=== PATIENT | male | born 1945 | race Caucasian/White ===

== ENCOUNTER 2017-04-25 11:50 | Day surgery (SDC) | payer OTHER ==
[2017-04-25] MEDS ORDERED: ceFAZolin 2 GM/DEXTROSE 100 ML IV ONE (12:06)
--- NOTE | 2017-04-25 12:11 | PDHPUP ---
History & Physical Update H&P update statement: This history and physical update is based on an assessment of the patient which was completed after admission or registration (within 24 hours), but prior to the surgery/procedure. H&P update: H&P reviewed & patient examined H&P changes: no changes
[2017-04-25] MEDS ORDERED: LR 1,000 ML IV ONE (12:25)
[2017-04-25] MEDS ORDERED: ceFAZolin 2 GM/SWFI 2 GM/20 ML SYR IVP ONE (12:30)
[2017-04-25] MEDS ORDERED: BACITRACIN 50,000 UNITS/10 ML SYR IRR ONE (12:52)
[2017-04-25] MEDS ORDERED: BUPIVACAINE 0.25% 30 ML SDV ONE ×2 (12:52→12:54)
[2017-04-25] MEDS ORDERED: PROPOFOL/EMULSION 500 MG/50 ML BOTTLE IV ONE ×3 (13:00→14:37)
--- NOTE | 2017-04-25 13:19 | PDANEPAE ---
ANE History of Present Illness Patient presents for R bunion surgery ANE Past Medical History - Cardiovascular History Hx Hypertension: Yes Hx Arrhythmias: Yes Hx Chest Pain: No Hx Coronary Artery / Peripheral Vascular Disease: Yes Hx CHF / Valvular Disease: Yes Hx Palpitations: No Cardiovascular History Comment: link monitor SQ right of sternum - Pulmonary History Hx COPD: No Hx Asthma/Reactive Airway Disease: No Hx Recent Upper Respiratory Infection: No Hx Oxygen in Use at Home: No Hx Sleep Apnea: Yes Sleep Apnea Screening Result - Last Documented: Positive Pulmonary History Comment: NILA - Neurologic History Hx Cerebrovascular Accident: No Hx Seizures: No Hx Dementia: No - Endocrine History Hx Diabetes: No - Renal History Hx Renal Disorders: No - Liver History Hx Hepatic Disorders: No - Neurological & Psychiatric Hx Hx Neurological and Psychiatric Disorders: No - Cancer History Hx Cancer: No - Congenital Disorder History Hx Congenital Disorders: No - GI History Hx Gastrointestinal Disorders: No - Other Health History Other Health History: none - Chronic Pain History Chronic Pain: Yes (left hip) - Surgical History Prior Surgeries: heart valve 06/2016. right hip 2016 ANE Review of Systems Review of Systems: - Exercise capacity Exercise capacity: >=4 METS METS (RN): 5 METS ANE Patient History - Allergies Allergies/Adverse Reactions: apixaban [From Eliquis] Allergy (Severe, Verified 04/11/17 10:47) Other-Enter Comments - Home Medications Home medications: home medication list seen and reviewed Home Medications: Atacand 04/11/17 [Last Taken Unknown] Lasix 04/11/17 [Last Taken Unknown] Metoprolol Succinate 04/11/17 [Last Taken 04/25/17 08:00] Potassium Chloride 04/11/17 [Last Taken 04/24/17] Tikosyn 0.125 MG (*) 04/11/17 [Last Taken Unknown] Warfarin Sodium 04/11/17 [Last Taken 04/15/17] - NPO status NPO Status: no food or drink >8 hours NPO Since - Liquids (Date): 04/25/17 NPO Since - Liquids (Time): 06:30 NPO Since - Solids (Date): 04/24/17 NPO Since - Solids (Time): 23:30 - Anes Hx Anes Hx: no prior problems - Smoking Hx Smoking Status: Never smoked - Family Anes Hx Family Hx Anesthesia Complications: none ANE Labs/Vital Signs - Vital Signs Blood Pressure: 113/68 Heart Rate: 59 Respiratory Rate: 18 O2 Sat (%): 92 Height: 185.42 cm Weight: 97.522 kg ANE Physical Exam - Airway Neck exam: FROM Mallampati Score: Class 1 Mouth exam: normal dental/mouth exam - Pulmonary Pulmonary: no respiratory distress - Cardiovascular Cardiovascular: regular rate and rhythym - ASA Status ASA Status: III ANE Anesthesia Plan Anesthesia Plan: GA with mask (RBA discussed)
[2017-04-25] MEDS ORDERED: LIDO/EPI 2%** Not for Epidural 20 ML MDV ONE (13:30)
[2017-04-25] MEDS ORDERED: ALBUTEROL HFA ANES ONLY 200 PUFFS/8.5 GM MDI IH ONE ×3 (13:43)
[2017-04-25] MEDS ORDERED: ONDANSETRON 4 MG/2 ML VIAL ONE (13:43)
[2017-04-25] MEDS ORDERED: CALCIUM CHLORIDE 1 GM/10 ML INJ ONE (13:57)
[2017-04-25] MEDS ORDERED: THROMBIN (BOVINE) 5,000 UNIT VIAL TP ONE (13:57)
[2017-04-25] MEDS ORDERED: LR 500 ML IV PRN (15:18)
[2017-04-25] MEDS ORDERED: ONDANSETRON 4 MG/2 ML VIAL IVP PRN (15:18)
[2017-04-25] MEDS ORDERED: OXYCODONE/APAP 5/325 TAB PO PRN (15:18)
[2017-04-25] MEDS ORDERED: fentaNYL 100 MCG/2 ML INJ IVP PRN (15:18)
[2017-04-25] MEDS ORDERED: HYDROCODONE/APAP 5/325 TAB PO PRN (15:18)
[2017-04-25] MEDS ORDERED: NALOXONE HCL 0.4 MG/ML INJ IVP PRN ×2 (15:18→15:33)
--- NOTE | 2017-04-25 15:34 | POSTANESTH ---
Post Anesthetic Evaluation Cardiovascular Status: Similar to Pre-Op Cond Respiratory Status: Similar to Pre-op Cond. Level of Consciousness/Mental Status: Alert and Oriented Pain Control: Adequate, Prn Tx Ordered Nausea/Vomiting Control: Adequate, Prn Tx Ordered Complications Possibly Related to Anesthesia: None Noted
--- NOTE | 2017-04-25 15:42 | POSTOPPROG ---
Post Op Note Date of Operation: 04/25/17 Surgeon: Michael Chavez Director Business Development: none Anesthesiologist: olivier Pre-op Diagnosis: hallux limitus right Post-op Diagnosis: same Indication: 1st mtpj pain Procedure: implant arthroplasty Findings: gout Inf/Abcess present in the surg proc area at time of surgery?: No Depth: Deep Incisional (Fascial) EBL: Minimal Total fluids administered: 20cc 9/1 ratio .25% marcaine plain and with epi Complications: none Drains: Other (none)
[2017-04-25 16:57] VITALS: BP 114/79; RESP 18; TEMP 97.6; O2SAT 98
[2017-04-25 17:00] VITALS: PULSE 58
--- NOTE | 2017-04-26 04:24 | GOP ---
[f rep st] OPERATIVE REPORT DATE OF OPERATION: 04/25/2017 SURGEON: Michael Chavez DPM [facility] TECHNICIAN: None. ANESTHESIA: Local with MAC. ANESTHESIOLOGIST: Saurabh Hernadez MD. PREOPERATIVE DIAGNOSIS: Hallux limitus, right. POSTOPERATIVE DIAGNOSIS: 1. Hallux limitus, right. 2. 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 PROCEDURE PERFORMED: 1. Right 1st metatarsal phalangeal joint implant arthroplasty. 2. Excision gouty tophus, right 1st metatarsophalangeal joint. 3. Platelet-rich plasma injection. FINDINGS: SPECIMENS: Soft tissue specimen and crystal sent in for pathological evaluation. ESTIMATED BLOOD LOSS: Less than 20 cc. DESCRIPTION OF PROCEDURE: The patient presented to [facility], was cleared for the int ended procedure. Patient was taken to the operating room and placed on the table in supine position. IV sedation was started per the anesthesia department. Foot was anesthetized and infiltrated in ne rve block fashion. Foot was prepped, scrubbed, and draped in usual sterile fashion following exsangu ination by elevation of Esmarch bandage, pneumatic ankle tourniquet was inflated to 250 mmHg. At thi s time, attention was directed to the dorsal aspect of the right 1st metatarsophalangeal joint where the obvious soft tissue swelling was identified. A linear incision was made medial to the extensor h allucis longus tendon. The incision was carried deep utilizing sharp and blunt dissection, making laughlin re that all neurovascular structures were identified and retracted at this time. All superficial ble eders were cauterized. The incision was carried down deep to the level of the joint capsule. At thi s time there was noted to be some continued bleeding from the tissue. It was initially thought that this was likely due to the use of anticoagulants by the patient. It was decided that the tourniquet would be inflated to 270 mmHg to help control the bleeding. At the same time, 5 cc of 2% xylocaine w ith epi were infiltrated over the site. This helped control the bleeding better at this point. Upon completion of this, a linear capsulotomy was performed. Capsular tissues were dissected free medial ly and laterally to allow for adequate exposure to the head of the metatarsal base of the proximal ph alanx. Immediately there were loose joint mice appreciable that were dissected free and removed. Th ere was also noted to be a gritty crystalline white appearing substance inside the joint and inside s ome of the capsular tissues. This was most consistent with the presence of gouty tophus. It was dec ided that this needed to be excised, which was performed as good as possible, and some of the tissue being sent in for pathological evaluation to confirm diagnosis. Upon completion of this, the area wa s flushed with copious amounts of sterile saline. At this point, the cartilaginous surfaces on both sides of the joint were noted to be completely denuded and his range of motion was less than 10 degre es at this time. It was decided that implant arthroplasty would be necessary. Attention was directe d to the head of the metatarsal where the guidewire was placed from distal to proximal. This was con firmed having good alignment with the C-arm fluoroscopy. Upon completion of this, the drill was plac ed over the area and the site was drilled appropriately. The area was tapped before the screw was pl aced into the metatarsal neck region. The area was again flushed with copious amounts of sterile anita ine at this time. Upon completion of this, the area was reamed appropriately for the 2.5 x 4.5 metat arsal cap. The trial cap was placed over the site and a McGlamry elevator was then utilized to free up the sesamoidal apparatus. Upon completion of this, dramatic improvement in the range of motion wa s identified immediately. There were considerable osteophyte formations surrounding the entire metat arsal capsule region which were then resected with a sagittal saw and smoothed down with a power bur. The area was again flushed with copious amounts of sterile saline. The metatarsal cap was shown on C-arm fluoroscopy to sit perfectly on the metatarsal. At this point, the metatarsal cap was removed and attention was directed to the base of the proximal phalanx where again substantial osteophyte fo rmation was noted. These were removed with a rongeur at this time before another guidewire was place d from proximal to distal in the proximal phalanx. Again, C-arm fluoroscopy confirmed excellent alig nment before the area was drilled and tapped appropriately. The area was again flushed with copious amounts of sterile saline before the base plate was then screwed into the proximal phalanx appropriat lisa. The area was again flushed with copious amounts of sterile saline to remove all bone fragments before the trial metatarsal head and phalangeal component were put into place. At this point, approx imately 80 degrees of range of motion and dorsiflexion were appreciable. This was decided to be an e xcellent result and the area had the temporary spacers removed. The area was flushed a final time wi th sterile saline and antibiotic rinse before the permanent implant was placed with the Zhong taper f it into the metatarsal neck and then packed it appropriately and the phalangeal component snapped int o the base plate in appropriate alignment. Again, range of motion was without crepitus and at approx imately 80-90 degrees. The area was flushed a final time with copious amounts of sterile saline befo re the capsular tissues were closed with 2-0 and 3-0 Vicryl followed by subcutaneous closure with 5-0 Vicryl and skin closure with 5-0 nylon. The area was then infiltrated with 4 cc of platelet-rich pl asma into the tissue surrounding the joint. The area was then dressed with Betadine-soaked Adaptics, 4x4s, Alyson, and Coban. The patient was taken to the recovery room, vital signs stable, vascular laughlin pply intact digits 1 through 5 bilaterally after the pneumatic ankle tourniquet had been released for a total tourniquet time of 116 minutes. HEMOSTASIS: PAT at 270 mmHg by 116 minutes. MATERIALS: Arthrosurface 2.5 x 4.5 implant. INJECTABLES: 20 cc, 9:1 ratio, 0.25% Marcaine plain, 0.25% Marcaine with epi preoperatively. 5 cc 2 % Xylocaine with epi intraoperatively. COMPLICATIONS: None. /[id number]/MODL
== END 2017-04-25 17:15 | disposition home or self-care (01) ==
LOC: FSGY 11:50
PROVIDERS: ATTEND Podiatrist Primary Podiatric Medicine
DX: M20.21 Hallux rigidus, right foot (principal); M1A.0711 Idiopathic chronic gout, right ankle and foot, with tophus (tophi)
CPT/HCPCS: 28291; L8642; C1713; J0171; J0690; J2405; J2704

== ENCOUNTER 2018-04-06 08:47 | Day surgery (SDC) | payer OTHER ==
[2018-04-06] MEDS ORDERED: ceFAZolin 2 GM/DEXTROSE 100 ML IV ONE (09:13)
[2018-04-06] MEDS ORDERED: LIDOCAINE 1% 2 ML INJ ID PRN (09:14)
[2018-04-06] MEDS ORDERED: LR 1,000 ML IV ONE (09:14)
--- NOTE | 2018-04-06 09:28 | PDHPUP ---
History & Physical Update H&P update statement: This history and physical update is based on an assessment of the patient which was completed after admission or registration (within 24 hours), but prior to the surgery/procedure. H&P update: H&P reviewed & patient examined, no change in patient's condition since H&P completed
[2018-04-06] MEDS ORDERED: EPINEPHrine 1 MG/ML INJ ONE (09:42)
[2018-04-06] MEDS ORDERED: BUPIVACAINE 0.25% 30 ML SDV ONE (09:42)
[2018-04-06] MEDS ORDERED: BACITRACIN 50,000 UNITS/10 ML SYR IRR ONE (09:43)
--- NOTE | 2018-04-06 09:45 | PDANEPAE ---
ANE History of Present Illness right hammertoe, plantar plate repair ANE Past Medical History - Cardiovascular History Hx Hypertension: Yes Hx Arrhythmias: Yes Hx Chest Pain: No Hx Coronary Artery / Peripheral Vascular Disease: Yes Hx CHF / Valvular Disease: Yes Hx Palpitations: No Cardiovascular History Comment: link monitor SQ right of sternum. 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 - Pulmonary History Hx COPD: No Hx Asthma/Reactive Airway Disease: No Hx Recent Upper Respiratory Infection: No Hx Oxygen in Use at Home: No Hx Sleep Apnea: Yes Sleep Apnea Screening Result - Last Documented: Positive Pulmonary History Comment: NILA uses BIPAP - Neurologic History Hx Cerebrovascular Accident: No Hx Seizures: No Hx Dementia: No - Endocrine History Hx Diabetes: No Hypothyroid: No Hyperthyroid: No Obesity: no - Renal History Hx Renal Disorders: No - Liver History Hx Hepatic Disorders: No - Neurological & Psychiatric Hx Hx Neurological and Psychiatric Disorders: No - Cancer History Hx Cancer: No - Congenital Disorder History Hx Congenital Disorders: No - GI History Hx Gastrointestinal Disorders: No - Other Health History Other Health History: viagra none for 24 htrs - Chronic Pain History Chronic Pain: No - Surgical History Prior Surgeries: heart valve 06/2016. bilat hip 2017. foot sx 2017 ANE Review of Systems Review of systems is: negative Review of Systems: - Exercise capacity Exercise capacity: >=4 METS METS (RN): 5 METS ANE Patient History - Allergies Allergies/Adverse Reactions: apixaban [From Eliquis] Allergy (Severe, Verified 04/06/18 09:25) Other-Enter Comments - Home Medications Home Medications: Atacand 04/11/17 [Last Taken Unknown] Lasix 04/11/17 [Last Taken Unknown] Metoprolol Succinate 04/11/17 [Last Taken 04/25/17 08:00] Potassium Chloride 04/11/17 [Last Taken 04/24/17] Tikosyn 0.125 MG (*) 04/11/17 [Last Taken Unknown] Warfarin Sodium 04/11/17 [Last Taken 03/31/18] Crestor 04/04/18 [Last Taken Unknown] Viagra 04/04/18 [Last Taken Unknown] - Anes Hx Anes Hx: no prior problems - Smoking Hx Smoking Status: Never smoked - Alcohol Use Alcohol Use: Occasionally (1-2 night) - Family Anes Hx Family Hx Anesthesia Complications: none ANE Labs/Vital Signs - Labs Result Diagrams: 04/06/18 09:30 - Vital Signs Vital Signs: reviewed preoperatively; see RN documention for details Height: 185.42 cm Weight: 97.522 kg ANE Physical Exam - Airway Neck exam: FROM Mallampati Score: Class 2 Mouth exam: normal dental/mouth exam - Pulmonary Pulmonary: no respiratory distress - Cardiovascular Cardiovascular: regular rate and rhythym - ASA Status ASA Status: III ANE Anesthesia Plan Anesthesia Plan: MAC
[2018-04-06] MEDS ORDERED: MIDAZOLAM 2 MG/2 ML VIAL IVP ONE (09:50)
[2018-04-06] MEDS ORDERED: LIDOCAINE 2% 5 ML SDV ONE (10:01)
[2018-04-06] MEDS ORDERED: PROPOFOL/EMULSION 500 MG/50 ML BOTTLE IV ONE ×2 (10:01→11:08)
[2018-04-06 10:16] LABS: INR 1.18 (0.83-1.16); PROTIME(PATIENT) 15.2 SEC (12.0-15.0)
[2018-04-06] MEDS ORDERED: THROMBIN(HUM PLAS)/FIBRINOG/CA 5 ML VIAL TP ONE ×2 (11:37→13:10)
[2018-04-06] MEDS ORDERED: ceFAZolin 1 GM VIAL ONE ×2 (13:18)
--- NOTE | 2018-04-06 13:51 | POSTOPPROG ---
Post Op Note Date of Operation: 04/06/18 Surgeon: Michael Chavez Grades 1 6 Tutor: none Anesthesiologist: parker Anesthesia: LMA Pre-op Diagnosis: pp teat r 2nd, dislocated 2nd mtpj, hammertoes 2 and 3 Post-op Diagnosis: same Indication: pain Procedure: pp repair, met osteotomy 2 & 3, hammertoes 2 & 3 Findings: djd Inf/Abcess present in the surg proc area at time of surgery?: No Depth: Deep Incisional (Fascial) EBL: Minimal Total fluids administered: 20 cc .25% marcaine plain and with epi 9/1 ratio preop Complications: arthritis right 2nd mtpj
[2018-04-06] MEDS ORDERED: HYDROCODONE/APAP 5/325 TAB PO PRN (14:08)
[2018-04-06] MEDS ORDERED: NALOXONE HCL 0.4 MG/ML INJ IVP PRN (14:08)
[2018-04-06] MEDS ORDERED: fentaNYL 100 MCG/2 ML INJ IVP PRN (14:08)
--- NOTE | 2018-04-06 14:08 | POSTANESTH ---
Post Anesthetic Evaluation Cardiovascular Status: Normal, Stable Respiratory Status: Normal, Stable Level of Consciousness/Mental Status: Can Participate in Eval Pain Control: Adequate, Prn Tx Ordered Nausea/Vomiting Control: Adequate, Prn Tx Ordered Complications Possibly Related to Anesthesia: None Noted
[2018-04-06 15:21] VITALS: BP 110/67
[2018-04-06] MEDS ORDERED: HYDROCODONE/APAP 5/325 TAB ONE (15:47)
--- NOTE | 2018-04-07 12:07 | GOP ---
[f rep st] OPERATIVE REPORT DATE OF OPERATION: 04/06/2018 SURGEON: Michael Chavez DPM [employer] ATTENDANT: None. ANESTHESIA: Local with MAC. ANESTHESIOLOGIST: Dr. Coker. PREOPERATIVE DIAGNOSIS: 1. Dislocated right 2nd metatarsophalangeal joint. 2. Plantar plate tear, right 2nd metatarsophalangeal joint. 3. Metatarsalgia, right 3rd metatarsal. 4. Hammertoe, right 2nd digit. 5. Hammertoe, right 3rd digit. POSTOPERATIVE DIAGNOSIS: 1. Dislocated right 2nd metatarsophalangeal joint. 2. Plantar plate tear, right 2nd metatarsophalangeal joint. 3. Metatarsalgia, right 3rd metatarsal. 4. Hammertoe, right 2nd digit. 5. Hammertoe, right 3rd digit. 6. 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 PROCEDURE PERFORMED: 1. Second metatarsal osteotomy with internal fixation, right. 2. Third metatarsal osteotomy with internal fixation, right. 3. Plantar plate repair, right 2nd metatarsophalangeal joint. 4. Cartilage allograft, right 2nd metatarsal head. 5. Hammertoe repair by proximal interphalangeal joint fusion, right 2nd digit. 6. Hammertoe repair, right 3rd digit by proximal interphalangeal joint fusion. FINDINGS: ESTIMATED BLOOD LOSS: Minimal. DESCRIPTION OF PROCEDURE: Patient presented to [facility] and was cleared for the inte nded procedure. Patient was taken to the operating room and placed on the table in supine position. IV sedation was started per the anesthesia department. Foot was anesthetized in infiltrative nerve block fashion. Foot was prepped, scrubbed, and draped in usual sterile fashion. Following exsanguin ation by elevation of Esmarch bandage, pneumatic ankle tourniquet was inflated to 250 mmHg. At this time, attention was directed to the dorsal aspect of the right 2nd ray where a lazy-S incision was ma de starting proximally over the 2nd intermetatarsal space curving medially at the metatarsophalangeal joint, being carried distally past the level of the proximal interphalangeal joint. This incision w as carried deep utilizing sharp blunt dissection, making sure that all neurovascular structures were identified and retracted at this time. All superficial bleeders were cauterized. The incision was c arried down to the level of the metatarsophalangeal joint. The same incision and dissection were the n performed over the 3rd metatarsophalangeal joint down to the level of the metatarsophalangeal joint as well. Upon completion of this, the obvious dislocated right 2nd metatarsophalangeal joint was id entified. A capsulotomy was performed and capsular tissues were dissected free medially and laterall y to allow for adequate exposure to the proximal phalanx and the neck of the metatarsal. At this giancarlo e, cartilaginous fragments were identified and removed from the incision and saved. The area was flu shed with copious amounts of sterile saline. Upon release of the metatarsophalangeal joint, a McGlam ry elevator was introduced and the plantar plate was freed up. Visualization of the head of the meta tarsal at this time showed cartilaginous surface still intact on the medial and lateral aspect of the head, but a deep denuding of cartilage in a central valley through the metatarsal head down to bone. A picture of this was taken at this time. Upon completion of this, a Jennifer osteotomy was performed using a sagittal saw. The osteotomy was performed from dorsal distal to plantar proximal, starting j ust proximal to the cartilaginous cap. The head was freely movable and was transposed proximally and was temporarily pinned with K-wire fixation. Evaluation, at this time of the plantar plate, showed a complete rupture with the flexor tendon clearly visible. It was decided that a plantar plate repai r would be necessary. The Arthrex mini scorpion was then utilized to tag the distal proximal and dis meagan lateral aspects of the plantar plate. A bone rasp was utilized to obtain healthy bleeding bone o n the plantar surface of the proximal phalanx. Drill holes were placed through the base of the proxi mal phalanx in a crossed X fashion so that the Arthrex FiberTape could be passed through to the dorsa l aspect of the base of the proximal phalanx. Upon completion of this, attention was then redirected to the 3rd metatarsophalangeal joint. Again, a linear incision was made through the capsule and dis sected free medially and laterally to allow for adequate exposure to the site. No damage to the cart ilaginous surface was identified at this time. Again, a Jennifer osteotomy was performed running from do rsal distal to plantar proximal. The metatarsal head was again transposed proximally and pinned temp orarily with K-wire fixation. There was no reason for a plantar plate repair at this level as was no mercy to be intact. Upon completion of this, the attention was directed to the proximal interphalangea l joints of both the 2nd and 3rd digits. Dissection was utilized and carried down to the level of th e extensor apparatus on both toes. Both were sharply incised in a transverse fashion and dissected f ree proximally to allow for adequate exposure to the head of the proximal phalanx. This was then res ected with a sagittal saw and removed from both toes. The bases of both proximal phalanx were remove d of any cartilage with a high-speed rotary bur. The areas were all flushed with copious amounts of sterile saline and antibiotic rinse at this time. Upon completion of this, the proximal and intermed iate phalanx were both drilled appropriately for insertion of the Synthes Hammerlock implant. After measuring, it was decided that large implants were necessary and were placed across the fusion site a ppropriately. C-arm fluoroscopy confirmed excellent alignment at this time. The areas again were fl ushed with copious amounts of sterile saline. Upon completion of this, the temporary K-wire fixation of the metatarsal neck and head was removed. The heads were moved into the appropriate alignment to allow for shortening, but still allowing for a good metatarsal parabola and making sure that the 2nd metatarsophalangeal joint was still not dislocated. These were again temporarily fixated before jacob ng permanently fixated with Arthrex 2.0 snap-off screws, 2 screws into each site of 13 mm was applied across the site and the temporary K-wires were removed. Upon completion of this, the incision on th e 3rd ray was closed deep over the metatarsophalangeal joint with 2-0 Vicryl. The extensor apparatus was reapproximated with 3-0 Vicryl, subcutaneous closure with 5-0 Vicryl, and skin closure with 5-0 nylon was performed. At this time, it was decided that something would need to be done to the osteoc hondral defect in the 2nd metatarsal head, and given the amount of time that was going to take, it wa s decided that the area would be dressed with a sterile dressing and the tourniquet would be released for 20 minutes. Upon completion of that, the foot was again exsanguinated utilizing elevation and a n Esmarch bandage. Attention was then redirected to the osteochondral defect. It was decided that the Arthrex BioCartil age would be applied to the site. Microfracture of the site was performed first with a 0.028 inch K- wire. Upon completion of this, the BioCartilage was mixed with previously prepared platelet-rich justyn sma and packed into the deficit site. The area then was covered with fibrin glue and allowed to sit for 10 minutes to harden up. Upon completion of this, the plantar plate was tied appropriately onto the base of the proximal phalanx, holding the toe in a straight and slightly plantar flexed position. The capsule was then closed over the area with 2-0 Vicryl. The extensor apparatus was again reappr oximated with 3-0 Vicryl before a light flush of the site was performed with a sterile saline and ant ibiotic rinse. Subcutaneous closure was obtained with 5-0 Vicryl and skin closure with 5-0 nylon. B oth incisions were then dressed with Betadine-soaked Adaptics, 4x4s, Alyson, and Coban. The patient w as taken to recovery room, vital signs stable, vascular supply intact to digits 1 through 5 bilateral ly after the pneumatic ankle tourniquet had been released for a 2nd time at 48 minutes. PATHOLOGY: None. HEMOSTASIS: PAT at 250 mmHg x 111 and 48 minutes. MATERIALS: Arthrex 2.0 snap-off screws by 13 mm x4, Arthrex BioCartilage, Synthes Hammerlock large 0 degree implants x2, Arthrex FiberTape. INJECTABLES: 20 cc 9:1 ratio 0.25% Marcaine plain, 0.25% Marcaine with epi preoperatively. COMPLICATIONS: None. /[id number]/MODL
== END 2018-04-06 15:57 | disposition home or self-care (01) ==
LOC: FSGY 08:47
PROVIDERS: ATTEND Podiatrist Primary Podiatric Medicine
DX: S93.144A Subluxation of metatarsophalangeal joint of right lesser toe(s), initial encounter (principal); M20.41 Other hammer toe(s) (acquired), right foot; M77.41 Metatarsalgia, right foot; I10 Essential (primary) hypertension; M10.9 Gout, unspecified; M66.371 Spontaneous rupture of flexor tendons, right ankle and foot; Z79.01 Long term (current) use of anticoagulants; Z95.2 Presence of prosthetic heart valve; Z96.641 Presence of right artificial hip joint; Z98.890 Other specified postprocedural states
CPT/HCPCS: C1713; C1762; J0171; J0690; J2250; J2704